=== PATIENT | male | born 1985 | race Caucasian/White ===

== ENCOUNTER 2020-08-19 06:59 | Outpatient (CLI) | payer OTHER, SELFPAY ==
[2020-08-19 07:45] LABS: Alanine Aminotransferase 47 U/L (4-50); Albumin Level 4.3 g/dL (3.5-5.1); Alkaline Phosphatase 78 U/L (38-126); Anion Gap 6 mmol/L (8-16); Aspartate Amino Transferase 34 U/L (17-59); Blood Urea Nitrogen 14 mg/dL (9-20); Calcium 8.9 mg/dL (8.4-10.2); Carbon Dioxide 29 mmol/L (22-30); Chloride 103 mmol/L (98-107); Cholesterol 228 mg/dL (0-200); Estimated Glomerular Filt Rate > 60; Glucose 101 mg/dL (75-110); HDL Direct 46 mg/dL; Sodium 138 mmol/L (137-145); Triglycerides 106 mg/dL (<150)
[2020-08-19 07:57] LABS: LDL Cholesterol Direct 122 mg/dL
== END 2020-08-19 07:00 | disposition home or self-care (01) ==
PROVIDERS: PCP Internal Medicine; Visit Provider Internal Medicine
DX: Z13.228 Encounter for screening for other metabolic disorders (principal); Z13.220 Encounter for screening for lipoid disorders
CPT/HCPCS: 36415; 80053; 80061

== ENCOUNTER → 2022-09-17 13:15 | Outpatient (CLI) | payer BC, SELFPAY ==
--- NOTE | ~2022-09-17 | MR_ITS ---
EXAMINATION: MR knee RT wo con DATE: 09/17/2022 14:04 INDICATION: Osteochondral defect of femoral condyle TECHNIQUE: Magnetic resonance imaging (MRI) of the right knee was performed without intravenous contr ast. Sequences included axial PD-weighted FS FSE, coronal PD-weighted FSE and PD-weighted FS FSE, sag ittal PD-weighted FSE, and sagittal T2-weighted FS FSE. COMPARISON: None. FINDINGS: Medial compartment: Meniscus and cartilage intact. Mild diffuse cartilage thinning. Lateral compartment: Meniscus and cartilage intact. Mild diffuse cartilage thinning. Patellofemoral compartment: Cartilage and retinacula intact. Ligaments and tendons: The ACL, PCL, MCL, and LCL are intact. Remaining flexor and extensor tendons are intact. Fluid: No significant fluid collection. Osseous/other: No suspicious focal or diffuse marrow signal. IMPRESSION: Mild diffuse medial and lateral compartment cartilage thinning. No osteochondral lesion detected. Otherwise normal MR knee findings. Reviewed, dictated and finalized at location K.
== END ==
PROVIDERS: PCP Family Medicine; Visit Provider Physician Assistant
DX: M95.8 Other specified acquired deformities of musculoskeletal system (principal)
CPT/HCPCS: 73721

== ENCOUNTER 2024-11-24 13:12 | Emergency (ER) | payer BC, SELFPAY ==
--- NOTE | ~2024-11-24 | XR_ITS ---
Examination: XR clavicle RT, XR wrist LT min 3V Clinical History: FALL, DEFORMITY Comparison: None Technique: 2 views right clavicle, 4 views left wrist Findings/impression: Right clavicle: 1. Comminuted and displaced fracture right clavicle, with elevation of medial fragment Left wrist: 1. No fracture or dislocation left wrist. 2. Possible scapholunate joint space narrowing. Reviewed, dictated and finalized at location R.
--- OUTSIDE RECORDS SUMMARY | 2024-11-24 13:14 | XMS_ITS | Clinical Summary ---
Author Organization [address] Address [address] [place] [id number] Care Team Providers Care Application Development Consultant Name Role Phone Gogo Weston MD Primary Care Provider Allergies No known active allergies Medications methylPREDNISol one (Medrol, Augusto,) 4 mg DosepackIndicat ions:Left hand pain,Finger injury, initial encounter Take as directed on package 1 packet 12/09/2023 Active Active Problems Problem Noted Date Diagnosed Date Left hand pain 12/09/2023 Finger injury, initial encounter 12/09/2023 Medical History Medical History Date Comments Gastric reflux Rheumatoid arthritis (HCC) Family History Medical History Relation Name Comments Arthritis Father Arthritis Mother Relation Name Status Comments Father Mother Social History Tobacco Use Types Packs/Day Years Used Date Smoking Tobacco: Never Assessed Sex and Gender Information Value Date Recorded Sex Assigned at Not on file Legal Sex Male 12:31 PM CDT Gender Identity Not on file Sexual Orientation Not on file 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 file Not on file Not on file Obstetrics History Last Filed Vital Signs Vital Sign Reading Time Taken Comments Blood Pressure 106/74 11/21/2023 8:01 AM CDT Pulse 77 11/21/2023 8:01 AM CDT Temperature 36.9 C (98.5 F) 11/21/2023 8:01 AM CDT Respiratory Rate 14 11/21/2023 8:01 AM CDT Oxygen Saturation 96% 11/21/2023 8:01 AM CDT Inhaled Oxygen Concentration - - Weight 86.6 kg (191 lb) 11/21/2023 8:01 AM CDT Height 193 cm (6' 4) 11/21/2023 8:01 AM CDT Body Mass Index 23.25 11/21/2023 8:01 AM CDT Plan of Treatment Health Maintenance Due Date Last Done Comments Depression Screening 1986 Hepatitis C Screening 1986 Varicella Vaccines (1 of 2 - 13+ 2-dose series) 1999 Hepatitis B Screening 2004 Regular Well Visit/Exam 18-64 2004 HPV Vaccines (1 - 3-dose SCD M series) 2013 Covid-19 Vaccine (3 - 2024-2 6 season) 2024 10/13/2020, 09/19/2020 Influenza Vaccine (#1) 2024 02/08/2017 DTaP/Tdap/Td Vaccine (2 - Td or Tdap) 02/08/2027 02/08/2017 Pneumococcal vaccine <65 Aged Out No longer eligible based on patient's age to complete this topic [place] [address] [employer] [place] [address] [address] [employer] Care Teams Application Development Consultant Relationship Specialty Start Date End Date Gogo Weston MD [address] [place] [address] PCP - General Family Medicine 12/09/23
[2024-11-24 13:18] VITALS: BP 125/85; PULSE 87; RESP 16; TEMP 36.3; O2SAT 99
--- OUTSIDE RECORDS SUMMARY | 2024-11-24 13:51 | XMS_ITS | Clinical Summary ---
Author Organization [address] Address [address] [place] [id number] Care Team Providers Care Clay Stain Mixer Name Role Phone Gogo Weston MD Primary [...] complete this [place] [address] [place] [address] [employer] Care Teams Clay Stain Mixer Relationship Specialty Start Date End Date Gogo Weston MD [address] [place] [address] PCP - General Family Medicine 12/09/23
[2024-11-24 14:24] VITALS: BP 118/83; PULSE 87; RESP 18; O2SAT 96
[2024-11-24] MEDS: oxyCODONE/ACETAMINOPHEN (*CRX) 5-325 MG TABLET 1 TABLET PO (14:26)
[2024-11-24] MEDS: ONDANSETRON HCL ODT 4 MG TABLET PO (14:26)
[2024-11-24] MEDS: IBUPROFEN 600 MG TABLET PO (14:26)
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
[2024-11-24 15:25] VITALS: BP 108/72; PULSE 84; RESP 16; TEMP 36.6; O2SAT 98
== END 2024-11-24 15:30 | disposition home or self-care (01) ==
PROVIDERS: Emergency Provider General Practice; PCP Family Medicine
DX: S42.021A Displaced fracture of shaft of right clavicle, initial encounter for closed fracture (principal); L65.9 Nonscarring hair loss, unspecified; V17.0XXA Pedal cycle driver injured in collision with fixed or stationary object in nontraffic accident, initial encounter
CPT/HCPCS: 73000; 73110; 99284; A4565; A9270